=== PATIENT | female | born 2000 | race Caucasian/White ===

== ENCOUNTER 2019-05-26 14:15 | Outpatient (CLI) | payer BC ==
[~2019-05-26] VITALS: Ht 157.5 cm; Wt 61.2 kg
[~2019-05-26 14:15] MED LIST: BIRTH CONTROL PO
== END 2019-05-26 15:32 | disposition home or self-care (01) ==
LOC: PREOP 14:15
PROVIDERS: ATTEND Otolaryngology Otolaryngology/Facial Plastic Surgery
DX: Z01.818 Encounter for other preprocedural examination (principal)

== ENCOUNTER 2019-05-29 06:27 | Day surgery (SDC) | payer BC ==
[~2019-05-29] VITALS: Ht 157.5 cm; Wt 61.2 kg
[2019-05-29] VITALS (11 sets, daily range): BP systolic 104–134; BP diastolic 68–93
--- OUTSIDE RECORDS SUMMARY | 2019-05-29 06:30 | XMS REPORT ---
Author MIRTHA [facility] eClinicalWorks Address Unknown Phone Unavailable Care Team Providers Care Hair Spinner Name Role Phone MIRTHA HOLBROOK CP Unavailable Allergies No Known Allergies Problems Problem Type Condition Code Onset Dates Condition Status Assessment Encounter for PPD test Z11.1 Active Medications No Known Medications Procedures Procedure Coding System Code Date TB INTRADERMAL TEST CPT-4 67767 Aug 11, 2015 Results No Known Results Summary Purpose eClinicalWorks Submission
--- OUTSIDE RECORDS SUMMARY | 2019-05-29 06:30 | XMS REPORT | Continuity of Care Document ---
Author Organization Unknown Address Unknown Phone Unavailable Allergies Active Description Code Type Severity Reaction Onset Reported/Identified Relationship to Patient Clinical Status Yes No Known Drug Allergies [id number] Drug Allergy Unknown N/A 04/14/2010 Medications There is no data. Problems Date Dx Coded Attending Type Code Diagnosis Diagnosed By 04/15/2010 Ot 844.9 04/15/2010 Ot 959.7 04/15/2010 Ot E000.8 04/15/2010 Ot E007.3 04/15/2010 Ot E849.4 04/15/2010 Ot E927.8 04/07/2015 JOSE ANTONIO BLANCHARD CLINICAL PRODUCT MANAGER Ot 599.0 05/15/2016 SIAJOSE ANTONIO Shaffer CLINICAL PRODUCT MANAGER Ot 599.0 URIN TRACT INFECTION NOS 06/21/2016 SAADIA OWENS MD Ot R21 RASH AND OTHER NONSPECIFIC SKIN ERUPTION 07/11/2016 SAADIA OWENS MD, Ot R21 RASH AND OTHER NONSPECIFIC SKIN ERUPTION 11/01/2016 JOSE ANTONIO BLANCHARD CLINICAL PRODUCT MANAGER Ot 599.0 URIN TRACT INFECTION NOS 11/01/2016 SAADIA OWENS MD, Ot R21 RASH AND OTHER NONSPECIFIC SKIN ERUPTION 01/06/2017 JOSE ANTONIO BLANCHARD CLINICAL PRODUCT MANAGER Ot 599.0 URIN TRACT INFECTION NOS 01/06/2017 SAADIA OWENS MD Ot R21 RASH AND OTHER NONSPECIFIC SKIN ERUPTION 05/07/2017 JOSE ANTONIO BLANCHARD CLINICAL PRODUCT MANAGER Ot 599.0 URIN TRACT INFECTION NOS 05/07/2017 SAADIA OWENS MD Ot R21 RASH AND OTHER NONSPECIFIC SKIN ERUPTION 05/08/2017 JOSE ANTONIO BLANCHARD CLINICAL PRODUCT MANAGER Ot 599.0 URIN TRACT INFECTION NOS 05/08/2017 SAADIA OWENS MD Ot R21 RASH AND OTHER NONSPECIFIC SKIN ERUPTION 10/05/2017 JOSE ANTONIO BLANCHARD CLINICAL PRODUCT MANAGER Ot 599.0 URIN TRACT INFECTION NOS 10/05/2017 SAADIA OWENS MD Ot R21 RASH AND OTHER NONSPECIFIC SKIN ERUPTION 10/11/2017 JOSE ANTONIO BLANCHARD CLINICAL PRODUCT MANAGER Ot 599.0 URIN TRACT INFECTION NOS 10/11/2017 SAADIA OWENS MD, Ot R21 RASH AND OTHER NONSPECIFIC SKIN ERUPTION 05/19/2019 JOSE ANTONIO BLANCHARD CLINICAL PRODUCT MANAGER Ot 599.0 URIN TRACT INFECTION NOS 05/19/2019 SAADIA OWENS MD, Ot R21 RASH AND OTHER NONSPECIFIC SKIN ERUPTION 05/23/2019 LUIS GOLDSMITH MD Ot Z01.818 ENCOUNTER FOR OTHER PREPROCEDURAL EXAMIN 05/26/2019 LUIS GOLDSMITH MD Ot Z01.818 ENCOUNTER FOR OTHER PREPROCEDURAL EXAMIN 05/26/2019 LUIS GOLDSMITH MD, Ot Z01.818 ENCOUNTER FOR OTHER PREPROCEDURAL EXAMIN Procedures There is no data. Results There is no data. Encounters ACCT No. Visit Date/Time Discharge Status Pt. Type Provider Facility Loc./Unit Complaint [id number] 05/26/2019 14:15:00 05/26/2019 15:32:00 DIS Outpatient LUIS GOLDSMITH MD [facility] PREOP CHRONIC TONSILLITIS [id number] 06/20/2016 15:45:00 06/20/2016 23:59:59 CLS Outpatient SAADIA OWENS MD [facility] LAB RASH [id number] 06/19/2015 18:53:00 06/19/2015 23:59:59 CLS Outpatient MILTON BLUM APRN [facility] QUICK [id number] 02/16/2015 09:56:00 02/16/2015 23:59:59 CLS Outpatient MIKEDeena JOSE ANTONIO K CLINICAL PRODUCT MANAGER [facility] LAB UTI [id number] 05/29/2019 07:30:00 PEN Preadmit LUIS GOLDSMIHT MD [facility] SDC CHRONIC TONSILLITIS [id number] 04/14/2010 22:48:00 Document Registration [email or web address] 06/20/2015 03:07:14 ACT Document Registration
--- NOTE | 2019-05-29 06:52 | Progress Note-Pre Operative ---
Pre-Operative Progress Note H&P Reviewed The H&P was reviewed, patient examined and no changes noted. Date Seen by Provider: May 29, 2019 Time Seen by Provider: 06:30 Date H&P Reviewed: May 29, 2019 Time H&P Reviewed: 06:30 Pre-Operative Diagnosis: Rec Tons/ Tonsil Hypertrophy LUIS GOLDSMITH MD May 29, 2019 06:52
[2019-05-29] MEDS ORDERED: LACTATED RINGERS 1,000 ML IV PRN (07:07)
[2019-05-29] MEDS ORDERED: MIDAZOLAM 2 MG/2 ML (VERSED) VIAL ONE ×2 (07:18→07:26)
[2019-05-29] MEDS ORDERED: LIDOCAINE PF 2% 5 ML (XYLOCAINE) VIAL ONE (07:25)
[2019-05-29] MEDS ORDERED: proPOfol 200 MG/20 ML (DIPRIVAN) VIAL IV ONE (07:25)
[2019-05-29] MEDS ORDERED: ONDANSETRON 4 MG/2 ML (SDV) Z0FRAN ONE (07:25)
[2019-05-29] MEDS ORDERED: fentaNYL INJECTION 100 MCG/2 ML AMP ONE (07:26)
[2019-05-29 07:28] LABS: BASOPHILS % (AUTO) 0 % (0-10); EOSINOPHILS # (AUTO) 0.3 10^3/uL (0.0-0.3); EOSINOPHILS % (AUTO) 3 % (0-10); HEMATOCRIT 42 % (35-52); HEMOGLOBIN 14.5 G/DL (11.5-16.0); LYMPHOCYTES # (AUTO) 3.8 X 10^3 (1.0-4.0); LYMPHOCYTES % (AUTO) 37 % (12-44); MEAN CORPUSCULAR HEMOGLOBIN 30 PG (25-34); MEAN CORPUSCULAR HGB CONC 35 G/DL (32-36); MEAN CORPUSCULAR VOLUME 85 FL (80-99); MEAN PLATELET VOLUME 8.8 FL (7.4-10.4); MONOCYTES # (AUTO) 0.9 X 10^3 (0.0-1.0); MONOCYTES % (AUTO) 8 % (0-12); NEUTROPHILS # (AUTO) 5.3 X 10^3 (1.8-7.8); NEUTROPHILS % (AUTO) 52 % (42-75); PLATELET COUNT 347 10^3/uL (130-400); RED CELL DISTRIBUTION WIDTH 12.5 % (10.0-14.5); WHITE BLOOD COUNT 10.4 10^3/uL (4.3-11.0)
[2019-05-29] MEDS ORDERED: MIDAZOLAM 2 MG/2 ML (VERSED) VIAL IV ONE (07:30)
[2019-05-29] MEDS ORDERED: SEVOFLURANE (ULTANE) 15 ML INHAL SOLN ONE (08:08)
[2019-05-29] MEDS ORDERED: NS IV 1000 ML 1,000 ML IV SCH (08:24)
--- NOTE | 2019-05-29 08:24 | Progress Note-Post Operative ---
Post-Operative Progess Note Surgeon (s)/Net Developer Consultant (s) Surgeon LUIS GOLDSMITH MD Net Developer Consultant n/a Pre-Operative Diagnosis Rec Tons/ Tonsil Hypertrophy Post-Operative Diagnosis same Post-Op Procedure Note Date of Procedure: May 29, 2019 Name of Procedure Performed: Tonsillectomy Description & Findings Description and Findings: n/a Anesthesia Type get Estimated Blood Loss minimal Packing none. Specimen(s) collected/removed tonsils LUIS GOLDSMITH MD May 29, 2019 08:24
[2019-05-29] MEDS ORDERED: HYDROcodone/APAP 7.5MG-325 MG/15 ML (LORTAB) UDC PO PRN (08:30)
[2019-05-29] MEDS ORDERED: APAP 325 MG/10.15 ML LIQ (TYLENOL) UDC PO PRN (08:30)
[2019-05-29] MEDS ORDERED: MEPERIDINE (DEMEROL) INJ 50 MG/ML IVP ONE ×2 (08:45→09:45)
[2019-05-29] MEDS ORDERED: ONDANSETRON 4 MG/2 ML (SDV) Z0FRAN IVP PRN ×2 (08:45→09:45)
[2019-05-29] MEDS ORDERED: PROMETHAZINE INJ 25 MG/ML (PHENERGAN) AMP IVP ONE (08:45)
[2019-05-29] MEDS ORDERED: HYDROmorphone 2 MG/ML VIAL (DILAUDID) IV ONE (08:45)
[2019-05-29] MEDS ORDERED: morphine INJ 10 MG/ML 1ML (SYR OR VIAL) IVP ONE ×2 (08:45→09:45)
[2019-05-29] MEDS ORDERED: DEXAINTSOL PO (09:50)
[2019-05-29] MEDS ORDERED: HYDR15SO8 PO (09:50)
[2019-05-29] MEDS ORDERED: AMOX250S5 PO (09:50)
[2019-05-29] MEDS ORDERED: TETRACAINESUCKERS MT (09:50)
--- NOTE | 2019-05-29 12:37 | Anesthesia-General Post-Op ---
General Patient Condition Mental Status/LOC: Same as Preop Cardiovascular: Satisfactory Nausea/Vomiting: Absent Respiratory: Satisfactory Pain: Controlled Complications: Absent Post Op Complications Complications None Follow Up Care/Instructions Patient Instructions None needed. Anesthesia/Patient Condition Patient Condition Patient is doing well, no complaints, stable vital signs, no apparent adverse anesthesia problems. No complications reported per nursing. D/C home per [facility] Criteria: Yes EVELINA العراقي CRNA May 29, 2019 12:37
== END 2019-05-29 11:20 | disposition home or self-care (01) ==
LOC: SDC 06:27
PROVIDERS: ATTEND Otolaryngology Otolaryngology/Facial Plastic Surgery
DX: J35.01 Chronic tonsillitis (principal); Z11.2 Encounter for screening for other bacterial diseases
CPT/HCPCS: 36415; 84703; 85025; 87081

== ENCOUNTER 2019-06-04 16:13 | Emergency (ER) | payer BC ==
[~2019-06-04] VITALS: Ht 157.5 cm; Wt 59.4 kg
[~2019-06-04 16:13] MED LIST changes: +AMOX250S5 PO; +DEXAINTSOL PO; +HYDR15SO8 PO; +TETRACAINESUCKERS MT
--- NOTE | 2019-06-04 16:44 | ED EENT ---
History of Present Illness General Chief Complaint: General Problems/Pain Stated Complaint: REFERRED TO ER BY DR SIMPSON Nursing Triage Note: PATIENT HAD TONSILECTOMY LAST SUNDAY. HERE WITH MOTHER. STATES THAT SHE HAS NOT BEEN DRINKING ENOUGH AND WAS TOLD BY DR SIMPSON TO COME HER FOR IV FLUIDS. Source: patient Exam Limitations: no limitations History of Present Illness Date Seen by Provider: Jun 04, 2019 Time Seen by Provider: 16:42 Initial Comments Tonsillectomy 1 week ago, unable to drink today due to pain. Some mild nausea as well. Has liquid hydrocodone at home for pain. Hasnt been drinking well today, called Dr Cabrera office and was referred to ER for IV fluids. Timing/Duration: gradual Severity: moderate Location: throat Prearrival Treatment: prescription meds Associated Symptoms: sore throat Allergies and Home Medications Allergies Coded Allergies: No Known Drug Allergies (Unverified , 04/14/10) Home Medications Amoxicillin 250 Mg/5 Ml Susp, 2 TSP PO BID Prescribed by: SHABNAM COSBY on 05/29/1952 Dexamethasone 1 Mg/1 Ml Torrie, 2 TSP PO DAILY PRN for PAIN Mix 4MG/2.5CC water Prescribed by: SHABNAM COSBY on 05[birth year]29/1952 Hydrocodone/Acetaminophen 15 Ml Solution, 2 TSP PO Q4H 8 OZ BOTTLE Prescribed by: SHABNAM COSBY on 05/29/1950 Tetracaine Sucker Ea, 1 EA MT UD PRN for PAIN Tetracain Suckers These suckers are custom made and require a prescription. Moisten the sucker first and then suck on it gently as far back in the mouth as possible for 2-3 days. You can repeadt it in about an hour. This will take the edge off but not completely numb the throat. Prescribed by: SHABNAM COSBY on 05/29/1952 [ Control] , 1 MG PO DAILY, (Reported) Patient Home Medication List Home Medication List Reviewed: Yes Review of Systems Review of Systems Constitutional: see HPI Eyes: No Symptoms Reported Ears: No Symptoms Reported Nose: no symptoms reported Mouth: no symptoms reported Throat: see HPI, pain Respiratory: no symptoms reported Cardiovascular: no symptoms reported Musculoskeletal: no symptoms reported Skin: no symptoms reported Neurological: No Symptoms Reported Hematologic/Lymphatic: No Symptoms Reported Past Uoissai-Kmgndi-Aadajg Hx Patient Social History Alcohol Use: Denies Use Recreational Drug Use: No Smoking Status: Never a Smoker 2nd Hand Smoke Exposure: No Recent Foreign Travel: No Contact w/Someone Who Travel: No Recent Infectious Disease Expo: No Recent Hopitalizations: No Seasonal Allergies Seasonal Allergies: Yes Past Medical History Surgeries: Yes (EYE SURGERY AT AGE 2) Tonsillectomy Respiratory: No Cardiac: No Neurological: No Genitourinary: No Gastrointestinal: No Musculoskeletal: No Endocrine: No HEENT: Yes (GLASSES, ) Tonsilitis Loss of Vision: Denies Hearing Impairment: Denies Cancer: No Psychosocial: No Integumentary: No Blood Disorders: No Adverse Reaction/Blood Tranf: No (N/A) Physical Exam Vital Signs Vital Signs - First Documented 06/04/19 16:24 Temp 95.6 Pulse 83 Resp 20 B/P (MAP) 103/60 (74) Pulse Ox 98 Height, Weight, BMI Height: 5'2.00" Weight: 131lbs. 0oz. 59.077178fq; 24.7 BMI Method:Actual General Appearance: WD/WN, no apparent distress Eyes: bilateral eye normal inspection, bilateral eye PERRL, bilateral eye EOMI Ears: bilateral ear auricle normal, bilateral ear canal normal, bilateral ear TM normal Nose: normal inspection, active bleeding Mouth/Throat: other (whitish eshcar over tonsil beds bilaterally, no active bleeding seen. ) Respiratory: normal breath sounds, no respiratory distress, no accessory muscle use Gastrointestinal: non tender, soft Neurologic/Psychiatric: alert, normal mood/affect, oriented x 3 Skin: normal color, warm/dry Progress/Results/Core Measures Results/Orders Lab Results Laboratory Tests Test 06/04/19 16:37 06/04/19 18:00 Range/Units White Blood Count 20.5 H 4.3-11.0 10^3/uL Red Blood Count 5.11 4.35-5.85 10^6/uL Hemoglobin 14.8 11.5-16.0 G/DL Hematocrit 44 35-52 % Mean Corpuscular Volume 87 80-99 FL Mean Corpuscular Hemoglobin 29 25-34 PG Mean Corpuscular Hemoglobin Concent 34 32-36 G/DL Red Cell Distribution Width 13.1 10.0-14.5 % Platelet Count 445 H 130-400 10^3/uL Mean Platelet Volume 8.7 7.4-10.4 FL Neutrophils (%) (Auto) 71 42-75 % Lymphocytes (%) (Auto) 20 12-44 % Monocytes (%) (Auto) 8 0-12 % Eosinophils (%) (Auto) 2 0-10 % Basophils (%) (Auto) 0 0-10 % Neutrophils # (Auto) 14.5 H 1.8-7.8 X 10^3 Lymphocytes # (Auto) 4.0 1.0-4.0 X 10^3 Monocytes # (Auto) 1.6 H 0.0-1.0 X 10^3 Eosinophils # (Auto) 0.4 H 0.0-0.3 10^3/uL Basophils # (Auto) 0.0 0.0-0.1 10^3/uL Neutrophils % (Manual) 65 % Lymphocytes % (Manual) 20 % Monocytes % (Manual) 11 % Eosinophils % (Manual) 2 % Band Neutrophils 1 % Reactive Lymphocytes 1 % Dohle Bodies SLIGHT Blood Morphology Comment NORMAL Sodium Level 138 135-145 MMOL/L Potassium Level 3.7 3.6-5.0 MMOL/L Chloride Level 101 98-107 MMOL/L Carbon Dioxide Level 28 21-32 MMOL/L Anion Gap 9 5-14 MMOL/L Blood Urea Nitrogen 17 7-18 MG/DL Creatinine 0.90 0.60-1.30 MG/DL Estimat Glomerular Filtration Rate > 60 BUN/Creatinine Ratio 19 Glucose Level 101 70-105 MG/DL Calcium Level 9.2 8.5-10.1 MG/DL Urine Color YELLOW Urine Clarity VERY CLOUDY H Urine pH 5 5-9 Urine Specific [place] 1.025 H 1.016-1.022 Urine Protein 1+ H NEGATIVE Urine Glucose (UA) NEGATIVE NEGATIVE Urine Ketones NEGATIVE NEGATIVE Urine Nitrite NEGATIVE NEGATIVE Urine Bilirubin NEGATIVE NEGATIVE Urine Urobilinogen 1 NORMAL MG/DL Urine Leukocyte Esterase 3+ H NEGATIVE Urine RBC (Auto) 2+ H NEGATIVE Urine RBC RARE /HPF Urine WBC 50-100 H /HPF Urine Crystals NONE /LPF Urine Bacteria LARGE H /HPF Urine Casts NONE /LPF Urine Mucus SMALL H /LPF Urine Culture Indicated YES My Orders Orders - ALANA XAVIER INSOLE AND OUTSOLE PREPARER Cbc With Automated Diff (06/04/19 16:41) Basic Metabolic Panel (06/04/19 16:41) Ed Iv/Invasive Line Start (06/04/19 16:41) Lactated Ringers (Lr 1000 Ml Iv Solution (06/04/19 16:45) Ondansetron Injection (Zofran Injectio (06/04/19 16:45) Ua Culture If Indicated (06/04/19 17:06) Lactated Ringers (Lr 1000 Ml Iv Solution (06/04/19 17:15) Manual Differential (06/04/19 16:37) Urine Culture (06/04/19 18:00) Rx-Cefdinir Oral Suspension (Rx-Omnicef (06/04/19 18:49) Medications Given in ED Current Medications Medications Dose Ordered Sig/José Miguel Route Start Time Stop Time Status Last Admin Dose Admin Ondansetron HCl 4 mg ONCE ONCE IVP 06/04/19 16:45 06/04/19 16:46 DC 06/04/19 16:49 4 MG Vital Signs/I&O 06/04/19 16:24 Temp 95.6 Pulse 83 Resp 20 B/P (MAP) 103/60 (74) Pulse Ox 98 Blood Pressure Mean: 74 Departure Impression Primary Impression: Postoperative pain Additional Impressions: Volume depletion Urinary tract infection Qualified Codes: N30.00 - Acute cystitis without hematuria Disposition: 01 HOME, SELF-CARE Condition: Stable Departure-Patient Inst. Decision time for Depature: 17:26 Referrals: SAADIA OWENS MD (PCP/Family) Primary Care Physician Patient Instructions: Managing Pain After Surgery, Urinary Tract Infection, Child (DC) Add. Discharge Instructions: 1. Small frequent sips of fluids 2. Follow-up with Dr. Simpson. Return to ER for any concerns. All discharge instructions reviewed with patient and/or family. Voiced understanding. ALANA XAVIER INSOLE AND OUTSOLE PREPARER Jun 04, 2019 16:44
[2019-06-04] MEDS ORDERED: LACTATED RINGERS 1,000 ML IV SCH ×2 (16:45→17:15)
[2019-06-04] MEDS ORDERED: ONDANSETRON 4 MG/2 ML (SDV) Z0FRAN IVP ONE (16:45)
[2019-06-04 16:46] LABS: BASOPHILS % (AUTO) 0 % (0-10); EOSINOPHILS # (AUTO) 0.4 10^3/uL (0.0-0.3); EOSINOPHILS % (AUTO) 2 % (0-10); HEMATOCRIT 44 % (35-52); HEMOGLOBIN 14.8 G/DL (11.5-16.0); LYMPHOCYTES % (AUTO) 20 % (12-44); MEAN CORPUSCULAR HEMOGLOBIN 29 PG (25-34); MEAN CORPUSCULAR HGB CONC 34 G/DL (32-36); MEAN CORPUSCULAR VOLUME 87 FL (80-99); MEAN PLATELET VOLUME 8.7 FL (7.4-10.4); MONOCYTES # (AUTO) 1.6 X 10^3 (0.0-1.0); MONOCYTES % (AUTO) 8 % (0-12); NEUTROPHILS # (AUTO) 14.5 X 10^3 (1.8-7.8); NEUTROPHILS % (AUTO) 71 % (42-75); PLATELET COUNT 445 10^3/uL (130-400); RED CELL DISTRIBUTION WIDTH 13.1 % (10.0-14.5); WHITE BLOOD COUNT 20.5 10^3/uL (4.3-11.0)
--- NOTE | 2019-06-04 16:46 | NUR ---
pt with " mom". pt alert gcs 15. pt s/p tonsilectomy 6 days ago. pt not been eating or drinking well. pt been c/o dizziness and nuausea when she sits up only. denies v/d and abd pain. pt denies coughing up or vomiting blood. denies dyspnea and no acute sighns of dyspnea noted. nn mostly dry and lips dry. no skin tenting noted. pt onlypain c/o is s/t rating 8. lungs cta bilaterally. abd w/o pain with palpation. pt has cold pack on forhead and cold pack on right neck. told take neck cold txoff in 5 min. had already strted iv and sent labs.
--- NOTE | 2019-06-04 16:51 | NUR ---
1st liter bolus started.
[2019-06-04 17:00] LABS: BUN/CREATININE RATIO 19; CALCIUM 9.2 MG/DL (8.5-10.1); CARBON DIOXIDE 28 MMOL/L (21-32); CHLORIDE 101 MMOL/L (98-107); GFR ESTIMATED > 60; GLUCOSE 101 MG/DL (70-105); POTASSIUM 3.7 MMOL/L (3.6-5.0); SODIUM 138 MMOL/L (135-145)
[2019-06-04 17:31] LABS: BAND NEUTROPHILS 1 %; EOSINOPHILS % (MANUAL) 2 %; LYMPHOCYTES % (MANUAL) 20 %; MONOCYTES % (MANUAL) 11 %; NEUTROPHILS % (MANUAL) 65 %; RBC MORPH NORMAL; REACTIVE LYMPHOCYTES 1 %
--- NOTE | 2019-06-04 18:01 | NUR ---
ua to lab byme. v/o pt to have total of 1-2 liters of ivf.
--- NOTE | 2019-06-04 18:01 | NUR ---
1st liter bolus 3/4 completed. i piggybacked 2 liter in 1st one.
[2019-06-04 18:05] LABS: BILIRUBIN,URINE NEGATIVE (NEGATIVE); CLARITY,URINE VERY CLOUDY; COLOR,URINE YELLOW; GLUCOSE, URINE (UA) NEGATIVE (NEGATIVE); KETONES,URINE NEGATIVE (NEGATIVE); LEUKOCYTE ESTERASE ,URINE 3+ (NEGATIVE); NITRITE,URINE NEGATIVE (NEGATIVE); PH,URINE 5 (5-9); PROTEIN,URINE 1+ (NEGATIVE); UROBILINOGEN,URINE 1 MG/DL (NORMAL)
--- NOTE | 2019-06-04 18:24 | NUR ---
pt ambulated to bathroom earlier for ua on own regards w/o dizziness.
[2019-06-04 18:27] LABS: BACTERIA,URINE LARGE /HPF; RBC,URINE RARE /HPF; WBC,URINE 50-100 /HPF
[2019-06-04] MEDS ORDERED: RX-CEFDINIR 125 MG/5 ML 60 ML PO STA (18:49)
--- NOTE | 2019-06-04 18:49 | NUR ---
pt alert gcs 15 with no acute sighns of dyspnea noted. mom and other person in room. pt denies dizziness. denies nausea and no v/d noted in er visit thus far. pt received 1 3/4 liters ivf. i d/cd the ivf. bp machine is 132/84 ausc hr 72 reg ausc resp 16 normal recheck temp 98.1 p ox r/a is 100. notofed about ivf and he said he will do d/c papers.
[2019-06-04] MEDS ORDERED: RX-ONDANSETRON 4 MG ODT (ZOFRAN) PPK #4 PO STA (18:52)
--- NOTE | 2019-06-04 18:55 | NUR ---
dr relates no need to give cefdinir here. just take home
[2019-06-04 19:11] VITALS: BP 132/84
--- NOTE | 2019-06-04 19:11 | NUR ---
d/c instructions to pt. told to read all papers. script paper only. pt left ambulatory with mom and another person. pt knows f/u. i went over the handtyped by information on the chart. iv d/cd by me prior to d/c. take home zofran and cefninir given. i wrote med doses on pt d/c paper.
== END 2019-06-04 19:11 | disposition home or self-care (01) ==
LOC: EDUNIT# 16:13 → ER 16:15
DX: G89.18 Other acute postprocedural pain (principal); N39.0 Urinary tract infection, site not specified; E86.9 Volume depletion, unspecified; Z90.89 Acquired absence of other organs
CPT/HCPCS: 36415; 80048; 81000; 85007; 85025; 85027; 87088

== ENCOUNTER 2019-06-06 03:41 | Emergency (ER) | payer BC ==
[~2019-06-06] VITALS: Ht 157.5 cm; Wt 59.0 kg
[2019-06-06] MEDS ORDERED: LACTATED RINGERS 1,000 ML IV ONE ×2 (04:06→05:19)
[2019-06-06] MEDS ORDERED: ONDANSETRON 4 MG/2 ML (SDV) Z0FRAN IVP ONE (04:15)
--- NOTE | 2019-06-06 04:23 | ED General ---
General Chief Complaint: Abdominal/GI Problems Stated Complaint: TONSILLECTOMY 05-29-19, DIZZY,VOMITING Nursing Triage Note: c/o vomiting 4-5 times since 0200 this am, states took zofran 4mg ODT at 0200. also c/o throat pain from recent tonsilectomy Nursing Sepsis Screen: No Definite Risk Source of Information: Patient, Family (MOM) History of Present Illness Date Seen by Provider: Jun 06, 2019 Time Seen by Provider: 04:05 Initial Comments PT ARRIVES VIA POV FROM HOME WITH MOM PT HAD TONSILLECTOMY 05/29/[address] GOLDSMITH HAVING CONTINUED PAIN IN THROAT, DESPITE TAKING LIQUID HYDROCODONE EVERY 4 HOURS--DID NOT TAKE HER 0200 DOSE, DUE TO NAUSEA/VOMITING C/O ONGOING NAUSEA, AND VOMITED X 4-5 SINCE 0200--TOOK ZOFRAN AT 0200 AND IS STILL NAUSEATED NO ABDOMINAL PAIN OR DIARRHEA C/O DIZZINESS STATES SHE IS NOT DRINKING VERY MUCH DUE TO THROAT PAIN LAST VOID WAS AT 1800 THIS EVENING NO FEVER NO BLEEDING FROM THROAT PT SEEN IN ER 06/04/19 FOR SAME--ALSO DX WITH UTI AT THAT TIME. HAD BEEN ON AMOXIL POST SURGERY, AND WAS SWITCHED TO CEFDINIR ON 06/04/19 DUE TO UTI BEING PRESENT ALSO LMP 3 WEEKS AGO, NORMAL. PCP: DR. MILLIGAN Allergies and Home Medications Allergies Coded Allergies: No Known Drug Allergies (Unverified , 04/14/10) Home Medications Amoxicillin 250 Mg/5 Ml Susp, 2 TSP PO BID Prescribed by: SHABNAM COSBY on 05/29/19 0950 Dexamethasone 1 Mg/1 Ml Torrie, 2 TSP PO DAILY PRN for PAIN Mix 4MG/2.5CC water Prescribed by: SHABNAM COSBY on 05/29/19 0950 Hydrocodone/Acetaminophen 15 Ml Solution, 2 TSP PO Q4H 8 OZ BOTTLE Prescribed by: SHABNAM COSBY on 05/29/19 0950 Promethazine HCl 25 Mg Supp.rect, 25 MG RC Q4H Prescribed by: NONA MOLINA on 06/06/19 0548 Tetracaine Sucker Ea, 1 EA MT UD PRN for PAIN Tetracain Suckers These suckers are custom made and require a prescription. Moisten the sucker first and then suck on it gently as far back in the mouth as possible for 2-3 days. You can repeadt it in about an hour. This will take the edge off but not completely numb the throat. Prescribed by: SHABNAM COSBY on 05/29/19 0950 [ Control] , 1 MG PO DAILY, (Reported) Patient Home Medication List Home Medication List Reviewed: Yes Review of Systems Review of Systems Constitutional: see HPI, dizziness; No fever; malaise, weakness EENTM: see HPI, throat pain; No ear pain Respiratory: no symptoms reported; No cough, No short of breath Cardiovascular: no symptoms reported Gastrointestinal: see HPI; No abdominal pain, No constipation, No diarrhea; loss of appetite, nausea, vomiting Genitourinary: see HPI, decreased output Musculoskeletal: no symptoms reported Skin: no symptoms reported Psychiatric/Neurological: No Symptoms Reported Hematologic/Lymphatic: No Symptoms Reported Immunological/Allergic: no symptoms reported Past Glddabw-Kzzonj-Sjuzzk Hx Patient Social History Alcohol Use: Denies Use Recreational Drug Use: No Smoking Status: Never a Smoker 2nd Hand Smoke Exposure: No Recent Foreign Travel: No Contact w/Someone Who Travel: No Recent Infectious Disease Expo: No Recent Hopitalizations: No Physical Abuse: No Sexual Abuse: No Mistreated: No Fear: No Seasonal Allergies Seasonal Allergies: Yes Past Medical History Surgeries: Yes (EYE SURGERY AT AGE 2) Tonsillectomy Respiratory: No Cardiac: No Neurological: No : No Last Menstrual Period: May 16, 2019 Genitourinary: No Gastrointestinal: No Musculoskeletal: No Endocrine: No HEENT: Yes (GLASSES, ) Tonsilitis Loss of Vision: Denies Hearing Impairment: Denies Cancer: No Psychosocial: No Integumentary: No Blood Disorders: No Adverse Reaction/Blood Tranf: No (N/A) Physical Exam Vital Signs Vital Signs - First Documented 06/06/19 03:58 Temp 98.8 Pulse 80 Resp 16 B/P (MAP) 135/94 (108) Pulse Ox 97 Capillary Refill : Less Than 3 Seconds Height, Weight, BMI Height: 5'2.00" Weight: 130lbs. 0oz. 58.175102og; 24.7 BMI Method:Stated General Appearance: No Apparent Distress, WD/WN HEENT: PERRL/EOMI, TMs Normal, Other (TONSILLAR BEDS WITH NORMAL POST OP APPEARANCE WITH WHITE ESCHAR. NO BLEDING OR SIGNS OF INFECTION. ORAL MUCOSA SLIGHTLY DRY. ) Neck: Full Range of Motion, Normal Inspection, Non Tender, Supple Respiratory: Normal Breath Sounds, No Accessory Muscle Use, No Respiratory Distress Cardiovascular: Regular Rate, Rhythm, No Murmur Gastrointestinal: Non Tender, Soft Extremity: Normal Inspection Neurologic/Psychiatric: Alert, Oriented x3, No Motor/Sensory Deficits, Normal Mood/Affect, instructional material director II-XII Norm as Tested Skin: Warm/Dry, Pallor; No Rash Progress/Results/Core Measures Suspected Sepsis Recent Fever Within 48 Hours: No Infection Criteria Present: None New/Unexplained Altered Menta: No Sepsis Screen: No Definite Risk SIRS Temperature:98.8 Pulse: 80 Respiratory Rate: 16 Laboratory Tests 06/06/19 04:15: White Blood Count 12.0H Blood Pressure 135 /94 Mean: 108 Laboratory Tests 06/06/19 04:15: Creatinine 0.86, Platelet Count 329, Total Bilirubin 0.5 Results/Orders Lab Results Laboratory Tests Test 06/06/19 04:15 Range/Units White Blood Count 12.0 H 4.3-11.0 10^3/uL Red Blood Count 4.78 4.35-5.85 10^6/uL Hemoglobin 14.2 11.5-16.0 G/DL Hematocrit 42 35-52 % Mean Corpuscular Volume 87 80-99 FL Mean Corpuscular Hemoglobin 30 25-34 PG Mean Corpuscular Hemoglobin Concent 34 32-36 G/DL Red Cell Distribution Width 12.9 10.0-14.5 % Platelet Count 329 130-400 10^3/uL Mean Platelet Volume 8.7 7.4-10.4 FL Neutrophils (%) (Auto) 66 42-75 % Lymphocytes (%) (Auto) 22 12-44 % Monocytes (%) (Auto) 8 0-12 % Eosinophils (%) (Auto) 4 0-10 % Basophils (%) (Auto) 0 0-10 % Neutrophils # (Auto) 7.9 H 1.8-7.8 X 10^3 Lymphocytes # (Auto) 2.7 1.0-4.0 X 10^3 Monocytes # (Auto) 1.0 0.0-1.0 X 10^3 Eosinophils # (Auto) 0.5 H 0.0-0.3 10^3/uL Basophils # (Auto) 0.0 0.0-0.1 10^3/uL Sodium Level 138 135-145 MMOL/L Potassium Level 3.6 3.6-5.0 MMOL/L Chloride Level 101 98-107 MMOL/L Carbon Dioxide Level 26 21-32 MMOL/L Anion Gap 11 5-14 MMOL/L Blood Urea Nitrogen 9 7-18 MG/DL Creatinine 0.86 0.60-1.30 MG/DL Estimat Glomerular Filtration Rate > 60 BUN/Creatinine Ratio 10 Glucose Level 113 H 70-105 MG/DL Calcium Level 9.1 8.5-10.1 MG/DL Corrected Calcium 9.2 8.5-10.1 MG/DL Magnesium Level 1.7 1.6-2.4 MG/DL Total Bilirubin 0.5 0.1-1.0 MG/DL Aspartate Amino Transf (AST/SGOT) 15 5-34 U/L Alanine Aminotransferase (ALT/SGPT) 20 0-55 U/L Alkaline Phosphatase 88 40-136 U/L Total Protein 7.2 6.4-8.2 GM/DL Albumin 3.9 3.2-4.5 GM/DL Amylase Level 115 25-125 U/L Lipase 138 H 8-78 U/L Serum Test, Qualitative NEGATIVE NEGATIVE My Orders Orders - NONA MOLINA DO Ed Iv/Invasive Line Start (06/06/19 04:06) Monitor-Rhythm Ecg Trace Only (06/06/19 04:06) Orthostatic Vital Signs (Adult (06/06/19 04:06) Amylase (06/06/19 04:06) Cbc With Automated Diff (06/06/19 04:06) Comprehensive Metabolic Panel (06/06/19 04:06) Hcg,Qualitative Serum (06/06/19 04:06) Lipase (06/06/19 04:06) Magnesium (06/06/19 04:06) Ondansetron Injection (Zofran Injectio (06/06/19 04:15) Ed Iv/Invasive Line Start (06/06/19 04:06) Lactated Ringers (Lr 1000 Ml Iv Solution (06/06/19 04:06) Hydrocodone/Apap Oral Solution (Lortab 7 (06/06/19 05:30) Ed Iv/Invasive Line Start (06/06/19 05:19) Lactated Ringers (Lr 1000 Ml Iv Solution (06/06/19 05:19) Medications Given in ED Current Medications Medications Dose Ordered Sig/José Miguel Route Start Time Stop Time Status Last Admin Dose Admin Acetaminophen/ Hydrocodone Bitart 10 ml ONCE PRN PO 06/06/19 05:30 06/06/19 05:28 10 ML Lactated Ringer's 1,000 ml @ 0 mls/hr Q0M ONCE IV 06/06/19 04:06 06/06/19 04:10 DC 06/06/19 04:23 1,000 MLS/HR Lactated Ringer's 1,000 ml @ 0 mls/hr Q0M ONCE IV 06/06/19 05:19 06/06/19 05:21 DC 06/06/19 05:28 1,000 MLS/HR Ondansetron HCl 8 mg ONCE ONCE IVP 06/06/19 04:15 06/06/19 04:16 DC 06/06/19 04:23 8 MG Vital Signs/I&O 06/06/19 03:58 Temp 98.8 Pulse 80 Resp 16 B/P (MAP) 135/94 (108) Pulse Ox 97 Capillary Refill : Less Than 3 Seconds Blood Pressure Mean: 108 Progress Note : Progress Note GIVEN ZOFRAN AND IV FLUIDS AND NAUSEA IS IMPROVED, PT ALSO GIVEN DOSE OF HYDROCODONE FOR THROAT PAIN IT HAS BEEN 8 HOURS SINCE HER LAST DOSE. PT VOIDED AFTER 1ST LITER OF FLUIDS PT TOLERATING ICE CHIPS AND WATER PRIOR TO DISMISSAL Departure Impression Primary Impression: POSTOP PAIN --S/P TONSILLECTOMY Additional Impressions: Nausea & vomiting Mild dehydration Disposition: 01 HOME, SELF-CARE Condition: Improved Departure-Patient Inst. Referrals: SAADIA OWENS MD (PCP/Family) Primary Care Physician Patient Instructions: DR. GOLDSMITH-TONSILS, Dehydration, Adult (DC), Diet After Mouth or Throat Surgery, Nausea and Vomiting, Adult (DC), Postoperative Pain (DC) Add. Discharge Instructions: LOTS OF CLEAR LIQUIDS, SIPS AT A TIME--WATER, BROTH, JELLO, GATORADE TAKE YOUR HYDROCODONE EVERY 4 HOURS NEEDED FOR PAIN CONTINUE ZOFRAN NEEDED FOR NAUSEA CONTINUE CEFDINIR PRESCRIBED FOLLOW UP WITH DR. GOLDSMITH IF SYMPTOMS PERSIST, RETURN TO ER IF WORSE All discharge instructions reviewed with patient and/or family. Voiced understanding. Scripts Ondansetron (Ondansetron Odt) 8 Mg Tab.rapdis 8 MG PO Q6H for Nausea/Vomiting, #10 TAB Prov: NONA MOLINA DO 06/06/19 Promethazine HCl (Phenergan) 25 Mg Supp.rect 25 MG RC Q4H for Nausea/Vomiting, #10 SUPP.RECT Prov: NONA MOLINA DO 06/06/19 NONA MOLINA DO Jun 06, 2019 04:23
[2019-06-06 04:24] LABS: BASOPHILS % (AUTO) 0 % (0-10); EOSINOPHILS # (AUTO) 0.5 10^3/uL (0.0-0.3); EOSINOPHILS % (AUTO) 4 % (0-10); HEMATOCRIT 42 % (35-52); HEMOGLOBIN 14.2 G/DL (11.5-16.0); LYMPHOCYTES # (AUTO) 2.7 X 10^3 (1.0-4.0); LYMPHOCYTES % (AUTO) 22 % (12-44); MEAN CORPUSCULAR HEMOGLOBIN 30 PG (25-34); MEAN CORPUSCULAR HGB CONC 34 G/DL (32-36); MEAN CORPUSCULAR VOLUME 87 FL (80-99); MEAN PLATELET VOLUME 8.7 FL (7.4-10.4); MONOCYTES % (AUTO) 8 % (0-12); NEUTROPHILS # (AUTO) 7.9 X 10^3 (1.8-7.8); NEUTROPHILS % (AUTO) 66 % (42-75); PLATELET COUNT 329 10^3/uL (130-400); RED CELL DISTRIBUTION WIDTH 12.9 % (10.0-14.5)
[2019-06-06 04:30] VITALS: BP_SYST 108; BP_SYST 116; BP_SYST 123; BP_DIAS 64; BP_DIAS 72; BP_DIAS 73
[2019-06-06 04:47] LABS: ALANINE AMINOTRANSFERASE 20 U/L (0-55); ALBUMIN 3.9 GM/DL (3.2-4.5); ALKALINE PHOSPHATASE 88 U/L (40-136); AMYLASE 115 U/L (25-125); BILIRUBIN,TOTAL 0.5 MG/DL (0.1-1.0); BUN/CREATININE RATIO 10; CALCIUM 9.1 MG/DL (8.5-10.1); CARBON DIOXIDE 26 MMOL/L (21-32); CHLORIDE 101 MMOL/L (98-107); CREATININE SERUM 0.86 MG/DL (0.60-1.30); GFR ESTIMATED > 60; GLUCOSE 113 MG/DL (70-105); LIPASE 138 U/L (8-78); MAGNESIUM 1.7 MG/DL (1.6-2.4); POTASSIUM 3.6 MMOL/L (3.6-5.0); SODIUM 138 MMOL/L (135-145); TOTAL PROTEIN 7.2 GM/DL (6.4-8.2)
[2019-06-06] MEDS ORDERED: HYDROcodone/APAP 7.5MG-325 MG/15 ML (LORTAB) UDC PO PRN (05:30)
[2019-06-06] MEDS ORDERED: PROM25SU43 RC (05:48)
[2019-06-06] MEDS ORDERED: ONDA8TAB13 PO (05:55)
[2019-06-06] MEDS ORDERED: PROMETHAZINE INJ 25 MG/ML (PHENERGAN) AMP IVP ONE (06:15)
[2019-06-06] MEDS ORDERED: diphenhydrAMINE 50 MG/ML INJ (BENADRYL) IVP ONE (06:15)
[2019-06-06 06:45] VITALS: BP 108/64
== END 2019-06-06 06:50 | disposition home or self-care (01) ==
LOC: EDUNIT# 03:41 → ER 03:44
DX: G89.18 Other acute postprocedural pain (principal); R07.0 Pain in throat; R11.2 Nausea with vomiting, unspecified; E86.0 Dehydration; Z90.89 Acquired absence of other organs
CPT/HCPCS: 36415; 80053; 82150; 83690; 83735; 84703; 85025; 93041